=== PATIENT | female | born 1985 | race Caucasian/White ===

== ENCOUNTER 2019-03-04 01:12 | Observation (INO) | payer SELFPAY ==
[2019-03-04] MEDS ORDERED: IV RINGERS,LACTATED 1000ML 1,000 ML IV SCH (03:30)
[2019-03-04 03:32] LABS: BILIRUBIN,URINE NEGATIVE (NEG); CLARITY,URINE CLEAR; COLOR,URINE YELLOW; NITRITE,URINE NEGATIVE (NEG); PH,URINE 6.5; PROTEIN,URINE 30 mg/dL (NEG-TRACE)
[2019-03-04 03:38] LABS: BARBITURATES NEG (NEG); BENZODIAZEPINES NEG (NEG); CANNABINOIDS NEG (NEG); COCAINE NEG (NEG); METHADONE NEG (NEG); OPIATES NEG (NEG); PHENCYCLIDINE NEG (NEG)
[2019-03-04 03:39] LABS: AMPHETAMINE/METHAMPHETAMINE NEG (NEG)
[2019-03-04 03:46] LABS: BACTERIA,URINE MODERATE /HPF (0-FEW); RBC,URINE OCC /HPF (0-2)
[2019-03-04 03:47] LABS: SQUAMOUS EPITHELIAL CELL,UR MOD /LPF
[2019-03-04 04:01] LABS: BASO # 0.1 x10^3/uL (0.0-0.2); BASO % 1 % (0-3); EOS # 0.2 x10^3/uL (0.0-0.7); EOS % 2 % (0-3); HEMATOCRIT 27.1 % (36.0-47.0); HEMOGLOBIN 8.7 g/dL (12.0-15.5); LYMPH # 1.7 x10^3/uL (1.0-4.8); LYMPH % 14 % (24-48); MEAN CORPUSCULAR HEMOGLOBIN 23 pg (25-35); MEAN CORPUSCULAR HGB CONC 32 g/dL (31-37); MEAN CORPUSCULAR VOLUME 72 fL (79-100); MONO # 0.6 x10^3/uL (0.0-1.1); MONO % 5 % (0-9); NEUT # 9.6 x10^3uL (1.8-7.7); NEUT % 79 % (31-73); PLATELET COUNT 277 x10^3/uL (140-400); RED BLOOD COUNT 3.75 x10^6/uL (3.50-5.40); RED CELL DISTRIBUTION WIDTH 15.9 % (11.5-14.5); WHITE BLOOD COUNT 12.1 x10^3/uL (4.0-11.0)
[2019-03-04 04:31] LABS: AMNIO PT NEGATIVE
--- NOTE | 2019-03-04 05:03 | RAD ---
INDICATION: Unknown dates of COMPARISON: None. TECHNIQUE: Limited focused ultrasound images obtained of the uterus. FINDINGS: Intrauterine is identified. Vertex presentation. Estimated weight 3726 g. Maternal cervix is not seen. Fluid is seen in the stomach and bladder. Four-chamber heart. Positive heartbeat of 131. Anterior placenta. Amniotic fluid index 12.8. IMPRESSION: 1. Intrauterine is identified with estimated gestational age of 39 weeks and 0 days with estimated due date of 03/11/2019 and a positive heartbeat. 2. Cephalic presentation with amniotic fluid index of 12.8. 3. Please note that given the patient's gestational age evaluation for anatomy is very limited. Electronically signed by: Juan Kidd MD (03/04/2019 5:01 AM) [id number]
[2019-03-04 08:50] LABS: % BANDS 5 % (0-9); % BASOS 1 % (0-3); % EOS 1 % (0-5); % LYMPHS 6 % (24-48); % MONOS 2 % (0-10); % SEGS 83 % (35-66)
[2019-03-04 08:53] LABS: PLT ESTIMATE ADEQUATE (ADEQUATE)
[2019-03-04 08:54] LABS: % METAS 2 % (0-0); ANISOCYTOSIS SLIGHT
[2019-03-09] MEDS ORDERED: FERR325T14 PO (15:18)
[2019-03-09] MEDS ORDERED: NAPR-514 PO (15:18)
[2019-03-09] MEDS ORDERED: OXYC1TAB15 PO (15:18)
== END 2019-03-04 10:05 | disposition home or self-care (01) ==
LOC: 3 SO LND 02:59
PROVIDERS: ADMIT Specialist; ATTEND Specialist
DX: O26.893 Other specified pregnancy related conditions, third trimester (principal); R10.9 Unspecified abdominal pain; Z3A.39 39 weeks gestation of pregnancy
CPT/HCPCS: 36415; 76815; 80307; 81001; 84112; 85007; 85025; 86592; 86706; 86762; 86803; 86850; 86900; 86901; 87086; 87653; G0378; G0379; J7120

== ENCOUNTER 2020-10-21 11:43 | Observation (INO) | payer MEDICAID ==
[2019-05-04 10:56] VITALS: BP 123/66
[~2020-10-21 11:43] MED LIST: FERR325T14 PO; NAPR-514 PO; OXYC1TAB15 PO
[2020-10-21 12:15] LABS: BILIRUBIN,URINE NEGATIVE (NEG); CLARITY,URINE CLEAR; COLOR,URINE YELLOW; NITRITE,URINE NEGATIVE (NEG); PROTEIN,URINE 30 mg/dL (NEG-TRACE)
[2020-10-21 12:22] LABS: BARBITURATES NEG (NEG); BENZODIAZEPINES NEG (NEG); CANNABINOIDS NEG (NEG); COCAINE NEG (NEG); METHADONE NEG (NEG); OPIATES NEG (NEG); PHENCYCLIDINE NEG (NEG)
[2020-10-21 12:29] LABS: AMPHETAMINE/METHAMPHETAMINE NEG (NEG)
[2020-10-21 12:41] LABS: BACTERIA,URINE FEW /HPF (0-FEW); RBC,URINE OCC /HPF (0-2)
[2020-10-21] MEDS ORDERED: AMPICILLIN SODIUM 2 GM in IV NORMAL SALINE 100ML 100 ML IV ONE (13:30)
[2020-10-21] MEDS ORDERED: BUTORPHANOL 2 MG/ML VIAL. IV ONE (13:30)
[2020-10-21] MEDS: IV RINGERS,LACTATED 1000ML 1,000 ML IV SCH (13:34)
[2020-10-21] MEDS: BUTORPHANOL 2 MG/ML VIAL. IV PRN ×2 (16:28→21:17)
[2020-10-21] MEDS: AMPICILLIN SODIUM 2 GM in IV NORMAL SALINE 100ML 100 ML IV SCH (20:05)
[2020-10-21] MEDS ORDERED: MAG HYDROX/ALUMINUM HYD/SIMETH 30 ML ORAL.SUSP PO PRN (20:30)
[2020-10-21] MEDS ORDERED: ACETAMINOPHEN 325 MG TABLET. PO PRN (20:30)
[2020-10-21] MEDS ORDERED: ZOLPIDEM 5 MG TABLET. PO PRN (20:30)
[2020-10-21] MEDS ORDERED: ACETAMINOPHEN 500 MG TABLET PO PRN (20:45)
[2020-10-22] MEDS: BUTORPHANOL 2 MG/ML VIAL. IV PRN (00:51)
[2020-10-22] MEDS: AMPICILLIN SODIUM 2 GM in IV NORMAL SALINE 100ML 100 ML IV SCH ×2 (02:09→07:35)
[2020-10-22] MEDS: IV RINGERS,LACTATED 1000ML 1,000 ML IV SCH (03:39)
--- NOTE | 2020-10-26 12:35 | NUR ---
Ampicillin IV started on 10/21/20 at 13:30--End time 10/21/20 at 14:00
== END 2020-10-22 08:25 | disposition home or self-care (01) ==
LOC: 3 SO LND 11:43
PROVIDERS: ADMIT Obstetrics & Gynecology; ATTEND Obstetrics & Gynecology
DX: O26.893 Other specified pregnancy related conditions, third trimester (principal); R10.2 Pelvic and perineal pain; R10.9 Unspecified abdominal pain; Z3A.33 33 weeks gestation of pregnancy; Z79.899 Other long term (current) drug therapy; Z98.891 History of uterine scar from previous surgery
CPT/HCPCS: 36415; 59025; 80307; 81001; 86592; 86762; 86850; 86900; 86901; 87086; 87340; 96361; 96365; 96366; 96375; 96376; G0378; G0379; J0290; J0595; J7120

== ENCOUNTER 2020-11-07 23:06 | Observation (INO) | payer MEDICAID ==
[2019-05-04 10:56] VITALS: BP 123/66
[~2020-11-07] VITALS: Ht 160 cm; Wt 75.3 kg
[2020-11-07] MEDS ORDERED: IV RINGERS,LACTATED 1000ML 1,000 ML IV SCH (23:15)
[2020-11-07 23:32] LABS: BILIRUBIN,URINE NEGATIVE (NEG); CLARITY,URINE CLEAR; COLOR,URINE YELLOW; NITRITE,URINE NEGATIVE (NEG); PROTEIN,URINE 100 mg/dL (NEG-TRACE)
[2020-11-07 23:39] LABS: BARBITURATES NEG (NEG); BENZODIAZEPINES NEG (NEG); CANNABINOIDS NEG (NEG); COCAINE NEG (NEG); METHADONE NEG (NEG); OPIATES NEG (NEG); PHENCYCLIDINE NEG (NEG)
[2020-11-07 23:41] LABS: AMPHETAMINE/METHAMPHETAMINE NEG (NEG)
[2020-11-07 23:43] LABS: BACTERIA,URINE FEW /HPF (0-FEW)
[2020-11-08 00:42] LABS: AMNIO PT NEGATIVE
[2020-11-08 01:40] LABS: CREATININE,RANDOM URINE 146.5 mg/dL (Not Establ.)
[2020-11-08 02:02] LABS: HEMATOCRIT 29.1 % (36.0-47.0); HEMOGLOBIN 9.7 g/dL (12.0-15.5); RED BLOOD COUNT 3.67 x10^6/uL (3.50-5.40); RED CELL DISTRIBUTION WIDTH 14.7 % (11.5-14.5); WHITE BLOOD COUNT 14.6 x10^3/uL (4.0-11.0)
[2020-11-08] MEDS ORDERED: ACETAMINOPHEN 500 MG TABLET PO ONE (02:15)
[2020-11-08 02:49] LABS: ALBUMIN 2.6 g/dL (3.4-5.0); ALBUMIN/GLOBULIN RATIO 0.6 (1.0-1.7); CALCIUM 8.4 mg/dL (8.5-10.1); CREATININE 0.6 mg/dL (0.6-1.0); GFR 115.1; POTASSIUM 3.8 mmol/L (3.5-5.1); TOTAL BILIRUBIN 0.3 mg/dL (0.2-1.0); TOTAL PROTEIN 6.8 g/dL (6.4-8.2)
[2020-11-08] MEDS ORDERED: BETAMET ACET&NA PHOS 30 MG/5 ML VIAL. IM SCH (03:10)
--- NOTE | 2020-11-08 09:16 | PDOC1 ---
OB - History Hx of Present Care: None Ultrasounds: Other (one sono at 33 wks gestation at [facility]) Obstetrical Complications: None Medical Complications: None Past Family/Social History * Past Medical, Surgical, Family and Obstetric Histories reviewed from chart. Blood Type: Unknown Rubella: Unknown RPR/VDRL: Unknown GBS Status: Unknown HBsAG: Unknown OB - Chief Complaint & HPI Date of Admission: Date of Admission: Nov 07, 2020 at 23:06 Chief Complaint/History : 10 Para: 7 EGA: 37 Reason for admission: observation (abd cramping) Admission Nurse Assessment Rev: Yes OB - Admission Exam Physical Exam HEENT: Normal Heart: Regular Rate Lungs: Clear, Equal Abdomen: Gravid, Non tender, Soft Extremities: Edema Reflexes: Normal Cervical Dilatation: 1cm Effacement: 50% Station: -3 Membranes: Intact Heart Rate: Normal Accelerations: Accelerations Present Decelerations: No decelerations Contractions on Admission: None Text A: 36 wks IUP with no PNC Previous c/s x 3 Preeclampsia: mild, asymptomatic P: Pt. reports transfer to [facility] 2 wks ago due to PTL. She was given corticosteroids at [facility] and discharged home. She desires to establish care with Dr. Petty. Discussed case with Dr. Petty. She will make appointment next week for care. JOCELIN TUBBS Jr, MD Nov 08, 2020 09:15
== END 2020-11-08 13:20 | disposition home or self-care (01) ==
LOC: 3 SO LND 23:06
PROVIDERS: ADMIT Obstetrics & Gynecology; ATTEND Obstetrics & Gynecology
DX: O62.9 Abnormality of forces of labor, unspecified (principal); O99.891 Other specified diseases and conditions complicating pregnancy; M54.5 Low back pain; R10.2 Pelvic and perineal pain; Z3A.36 36 weeks gestation of pregnancy; Z79.899 Other long term (current) drug therapy
CPT/HCPCS: 36415; 59025; 80053; 80307; 81001; 82570; 84112; 84156; 85027; 86592; 86762; 86850; 86900; 86901; 87086; 87340; G0378; G0379